=== PATIENT | female | born 1960 | race Caucasian/White ===

== ENCOUNTER 2023-08-07 07:00 | Observation (INO) ==
[~2023-08-07 07:00] MED LIST: Buffered Lidocaine 1% SYRIN 1 ml INTRADERM ONE; Lactated Ringers 1000 ml BAG 1,000 ML IV SCH; Metoclopramide 5 MG/ML VIAL (10 mg) IV PRN; Naloxone 0.4 mg VIAL 0.4 mg/ml 1 ml VIAL IV PRN; Ondansetron 4 mg VIAL 2 MG/ML 2 ml VIAL IV PRN; Tranexamic Acid 1 GM/100ML BAG 2,000 MG/200 ML BAG IV ONE; ceFAZolin 2 GM in NS PREMIX 2 GM/100 ML BAG IVPB ONE; fentaNYL 100 mcg/2 ml 50 MCG/ML VIAL IV PRN
[2023-08-07] MEDS ORDERED: ROPIVACAINE 5 MG/ML 30 ML BTL (0.5%) ONE (07:25)
[2023-08-07 07:52] LABS: Rapid COVID-19 Molecular Undetected (Undetected)
[2023-08-07] MEDS ORDERED: Glycopyrrolate IV 0.2 MG/ML 1 ML VIAL ONE (07:54)
[2023-08-07] MEDS ORDERED: Phenylephrine IV 10 MG/ML 1 ml VIAL ONE (07:54)
[2023-08-07] MEDS ORDERED: Ondansetron 4 mg VIAL 2 MG/ML 2 ml VIAL ONE ×2 (07:54→13:49)
[2023-08-07] MEDS ORDERED: Lidocaine 2% PF 5 ML VIAL ONE (07:54)
[2023-08-07] MEDS ORDERED: fentaNYL 100 mcg/2 ml 50 MCG/ML VIAL ONE (08:00)
[2023-08-07] MEDS ORDERED: Midazolam 2 mg/2 ml VIAL 1 mg/ml 2 ml VIAL (2 mg) ONE ×2 (08:00→08:22)
[2023-08-07] MEDS ORDERED: KETAMINE HCL 10 MG/ML 20 ml VIAL (200 MG) ONE (08:41)
[2023-08-07] MEDS ORDERED: Dexmedetomidine 200 mcg/2 ml 2 ml VIAL (200 mcg) ONE (08:43)
[2023-08-07] MEDS ORDERED: Lactulose 30 ml UDC PO PRN (08:50)
[2023-08-07] MEDS ORDERED: Ondansetron 4 mg VIAL 2 MG/ML 2 ml VIAL IV PRN (08:50)
[2023-08-07] MEDS ORDERED: Ondansetron ODT 4 mg TAB 4 MG TAB PO PRN (08:50)
[2023-08-07] MEDS ORDERED: Morphine 2 MG/ML SYRINGE IV PRN (08:50)
[2023-08-07] MEDS ORDERED: Magnesium Hydroxide LIQ 30 ML UDC PO PRN (08:50)
[2023-08-07] MEDS ORDERED: Metoclopramide 5 MG/ML VIAL (10 mg) ONE (09:00)
[2023-08-07] MEDS ORDERED: Dexamethasone IV 4 MG/ML VIAL 1 ml VIAL ONE (09:09)
[2023-08-07] MEDS ORDERED: Propofol 10 MG/ML 20 ML BTL ONE ×2 (10:23→10:58)
[2023-08-07] MEDS ORDERED: Sevoflurane BOTTLE ONE (10:41)
[2023-08-07] MEDS: Magnesium Hydroxide LIQ 30 ML UDC PO SCH ×2 (12:54→20:09)
[2023-08-07] MEDS: Vitamin THERAPEUTIC TAB PO SCH (12:55)
[2023-08-07] MEDS: Lactated Ringers 1000 ml BAG 1,000 ML IV SCH (13:03)
[2023-08-07] MEDS ORDERED: Albuterol HFA INHALER 8 gm MDI INH PRN (13:30)
[2023-08-07] MEDS: ceFAZolin 1 GM ADVAN 1 GM in NS 0.9% 50 ML 50 ML IVPB SCH (16:14)
[2023-08-07] MEDS ORDERED: SPIRIVA Respimat (tiotropium) 2.5 mcg/inh Inhaler INH SCH (21:00)
[2023-08-08] MEDS: Lactated Ringers 1000 ml BAG 1,000 ML IV SCH (00:16)
[2023-08-08] MEDS: ceFAZolin 1 GM ADVAN 1 GM in NS 0.9% 50 ML 50 ML IVPB SCH ×2 (00:17→09:15)
[2023-08-08] MEDS ORDERED: Mometasone/Formoter 200/5 MDI INH SCH (07:00)
[2023-08-08 07:03] LABS: Platelet Count 241 10^3/uL (150-450)
[2023-08-08 07:06] LABS: Hematocrit 35.3 % (35-45); Hemoglobin 11.7 g/dL (11.5-14.3); Mean Platelet Volume 8.9 fL (7.5-11.2)
[2023-08-08 07:19] LABS: Calcium 8.3 mg/dL (8.6-10.3); Creatinine, Serum 0.79 mg/dL (0.51-0.95); Potassium 4.2 mmol/L (3.5-5.0); eGFR CKD-EPI 85.1 (>60)
[2023-08-08] MEDS ORDERED: Cholecalciferol (VIT D3) 1,000 unit TAB PO SCH (09:00)
[2023-08-08] MEDS: Magnesium Hydroxide LIQ 30 ML UDC PO SCH (09:19)
[2023-08-08] MEDS: Vitamin THERAPEUTIC TAB PO SCH (09:24)
[2023-08-08 10:44] VITALS: BP 121/74
== END 2023-08-08 13:00 | disposition home or self-care (01) ==
LOC: AA 07:00 → INTOOBSV 07:00 → SSU 12:20
PROVIDERS: ADMIT Orthopaedic Surgery Adult Reconstructive Orthopaedic Surgery; ATTEND Orthopaedic Surgery Adult Reconstructive Orthopaedic Surgery